=== PATIENT | male | born 1940 | race Caucasian/White ===

== ENCOUNTER 2018-03-19 22:27 | Inpatient (IN) | payer OTHER ==
[~2018-03-19] VITALS: Ht 160 cm; Wt 90.7 kg
[~2018-03-19 22:27] MED LIST: CARDIZEM CD180 MG PO; COLACE100 MG PO; DETROL2 MG PO; ECOTRIN325 MG PO; FLOMAX0.4 MG PO; GLUCOPHAGE500 MG PO; IRON325 M1 PO; LIPITOR10 MG PO; NEXIUM40 MG PO; TRICOR145 MG PO; ZESTRIL10 MG PO
[2018-03-20 06:15] VITALS: BP 155/83
[2018-03-20 10:56] VITALS: BP 157/74
[2018-03-20 16:02] VITALS: BP 113/63
[2018-03-20 19:59] VITALS: BP 109/59
[2018-03-21 00:13] VITALS: BP 107/62
[2018-03-21 04:26] VITALS: BP 124/65
[2018-03-21 06:13] LABS: HEMATOCRIT 40.9 % (38.0-50.0); MCV 97.1 FL (86-99)
[2018-03-21 06:24] LABS: HEMOGLOBIN 13.9 G/DL (12.5-16.6)
[2018-03-21 06:45] LABS: CHLORIDE 107 MEQ/L (99-109); GFR ESTIMATE (CALCULATED) > 59 mL/min/ (58.99-99999); GLUCOSE 139 mg/dL (70-99); POTASSIUM 4.4 MEQ/L (3.7-5.4); SODIUM 141 MEQ/L (136-147); UREA NITROGEN (BUN) 16 mg/dL (9-23)
[2018-03-21 08:41] VITALS: BP 101/58
[2018-03-21 11:53] VITALS: BP 107/63
[2018-03-21 16:15] VITALS: BP 100/56
[2018-03-21 20:19] VITALS: BP 112/69
[2018-03-22 00:05] VITALS: BP 101/57
[2018-03-22 04:15] VITALS: BP 110/61
[2018-03-22 05:35] LABS: HEMATOCRIT 38.6 % (38.0-50.0); HEMOGLOBIN 12.9 G/DL (12.5-16.6); MCV 97.7 FL (86-99)
[2018-03-22 08:03] VITALS: BP 102/56
[2018-03-22] MEDS ORDERED: CELECOXIB200 MG PO (08:56)
[2018-03-22] MEDS ORDERED: OXYCODONE HCL5 MG PO (08:56)
[2018-03-22] MEDS ORDERED: ELIQUIS2.5 MG PO (08:56)
[2018-03-22 12:25] VITALS: BP 92/52
== END 2018-03-22 13:40 | DRG 470 ==
LOC: ENRESERV 22:27 → 2SOUTH 03-20 05:37 → 3WEST 03-20 10:30 → 2SOUTH 03-20 10:58 → 3WEST 03-22 13:40
PROVIDERS: Orthopaedic Surgery
PROC: 0SRB04A Replacement of Left Hip Joint with Ceramic on Polyethylene Synthetic Substitute, Uncemented, Open Approach (ICD-10-PCS; principal; 2018-03-20)
DX: M16.12 Unilateral primary osteoarthritis, left hip (principal); I10 Essential (primary) hypertension; E11.9 Type 2 diabetes mellitus without complications; G47.33 Obstructive sleep apnea (adult) (pediatric); K21.9 Gastro-esophageal reflux disease without esophagitis; K44.9 Diaphragmatic hernia without obstruction or gangrene; M85.80 Other specified disorders of bone density and structure, unspecified site; I25.2 Old myocardial infarction; Z95.5 Presence of coronary angioplasty implant and graft; Z79.84 Long term (current) use of oral hypoglycemic drugs; Z79.82 Long term (current) use of aspirin; Z85.46 Personal history of malignant neoplasm of prostate
CPT/HCPCS: 73501; 80048; 82948; 85014; 85018; 97530 GP; C1713; J0690; J2250; J7030; J7050; S0020

== ENCOUNTER 2018-03-24 00:32 | Emergency (ER) | payer OTHER ==
[~2018-03-24] VITALS: Ht 162.6 cm; Wt 74.5 kg
[~2018-03-24 00:32] MED LIST changes: +CELECOXIB200 MG PO; +ELIQUIS2.5 MG PO; +OXYCODONE HCL5 MG PO
[2018-03-24 01:42] LABS: HEMATOCRIT 38.1 % (38.0-50.0); HEMOGLOBIN 13.3 G/DL (12.5-16.6); MCH 33.2 PG (29.0-34.0); MCHC 34.9 G/DL (30.0-36.0); PLATELET COUNT 135 K/uL (156-360); RBC DIS.WIDTH-SD 45.5 % (39-53); RED BLOOD COUNT 4.01 M/uL (4.00-5.50)
[2018-03-24 01:57] LABS: ALBUMIN 3.8 g/dL (3.2-4.8)
[2018-03-24 01:58] LABS: CHLORIDE 103 mEq/L (99-109); POTASSIUM 4.4 mEq/L (3.7-5.4); SODIUM 139 mEq/L (136-147)
[2018-03-24 02:00] LABS: GLUCOSE 116 mg/dL (70-99); TOTAL PROTEIN 6.7 g/dL (6.4-8.3)
[2018-03-24 02:02] LABS: TOTAL BILIRUBIN 0.8 mg/dL (0.0-1.0)
[2018-03-24 02:03] LABS: ALKALINE PHOSPHATASE 76 IU/L (3-129)
[2018-03-24 02:04] LABS: CREATININE 1.3 mg/dL (0.6-1.3); GFR ESTIMATE (CALCULATED) 57 mL/min/ (58.99-99999)
[2018-03-24 02:05] LABS: AST (GOT) 22 IU/L (2-34)
[2018-03-24 02:06] LABS: ALT (GPT) 14 IU/L (3-49)
[2018-03-24 02:15] LABS: UREA NITROGEN (BUN) 28 mg/dL (9-23)
[2018-03-24 03:54] VITALS: BP 134/77
== END 2018-03-24 03:54 | disposition home or self-care (01) ==
LOC: EME 00:32
PROVIDERS: Emergency Medicine
DX: G89.18 Other acute postprocedural pain (principal); M79.652 Pain in left thigh; M79.89 Other specified soft tissue disorders; M79.605 Pain in left leg; Z98.890 Other specified postprocedural states; Z96.642 Presence of left artificial hip joint; I10 Essential (primary) hypertension; E11.9 Type 2 diabetes mellitus without complications; Z79.84 Long term (current) use of oral hypoglycemic drugs
CPT/HCPCS: 73502; 80053; 85027; 93971; 99281; 99285